=== PATIENT | female | born 2000 | race Two or more races ===

== ENCOUNTER 2021-08-06 19:20 | Emergency (ER) | payer OTHER ==
[~2021-08-06] VITALS: Ht 165.1 cm; Wt 49.9 kg
== END 2021-08-06 22:58 | disposition home or self-care (01) ==
LOC: ER 19:20 → EMR PED 19:25
DX: R07.9 Chest pain, unspecified (principal); R42 Dizziness and giddiness; Z20.822 Contact with and (suspected) exposure to COVID-19

== ENCOUNTER 2021-08-18 07:42 | Outpatient (CLI) | payer OTHER | END 2021-08-18 07:43 | disposition home or self-care (01) | LOC: LAB 07:42 | PROVIDERS: ATTEND Internal Medicine | DX: N91.2 Amenorrhea, unspecified (principal); R73.09 Other abnormal glucose; E55.9 Vitamin D deficiency, unspecified; Z13.1 Encounter for screening for diabetes mellitus ==

== ENCOUNTER 2021-09-01 08:03 | Outpatient (CLI) | payer OTHER | END 2021-09-01 08:04 | disposition home or self-care (01) | LOC: LAB 08:03 | PROVIDERS: ATTEND Internal Medicine | DX: E11.65 Type 2 diabetes mellitus with hyperglycemia (principal) ==

== ENCOUNTER → 2021-09-20 06:23 | Outpatient (CLI) | payer OTHER | END | disposition home or self-care (01) | LOC: LAB 06:23 | PROVIDERS: ATTEND Internal Medicine | DX: N92.6 Irregular menstruation, unspecified (principal); E27.1 Primary adrenocortical insufficiency; E16.2 Hypoglycemia, unspecified; E28.2 Polycystic ovarian syndrome ==

== ENCOUNTER 2022-01-21 07:19 | Outpatient (CLI) | payer OTHER | END 2022-01-21 07:21 | disposition home or self-care (01) | LOC: LAB 07:19 | PROVIDERS: ATTEND Obstetrics & Gynecology | DX: N95.1 Menopausal and female climacteric states (principal); E22.0 Acromegaly and pituitary gigantism; E55.0 Rickets, active ==

== ENCOUNTER 2022-01-21 08:41 | Outpatient (CLI) | payer OTHER | END 2022-01-21 08:46 | disposition home or self-care (01) | LOC: SONOGRAMA 08:41 | PROVIDERS: ATTEND Obstetrics & Gynecology | DX: R10.2 Pelvic and perineal pain (principal) ==

== ENCOUNTER → 2024-03-13 06:31 | Outpatient (CLI) | payer OTHER ==
[2024-03-13 09:03] LABS: ALBUMIN 3.9 gm/dL (3.4-5.0); BILIRUBIN TOTAL 0.56 mg/dL (0.3-1.2); CALCIUM 8.8 mg/dL (8.5-10.1); CREATININE SERUM 0.44 mg/dL (0.55-1.02); GFR 177.2; GLOBULINA 3.4 G/DL (2.4-3.5); POTASSIUM 3.92 mEq/L (3.5-5.1); TOTAL PROTEIN 7.3 gm/dL (6.4-8.2); TSH 2.8 uIU/mL (0.358-3.74)
== END | disposition home or self-care (01) ==
LOC: LAB 06:31
DX: E16.1 Other hypoglycemia (principal); E66.3 Overweight; Z13.1 Encounter for screening for diabetes mellitus

== ENCOUNTER 2024-08-19 07:12 | Outpatient (CLI) | payer OTHER ==
[2024-08-19 08:10] LABS: PH,URINE 7.5 (5.0-8.0); URINE APPEARANCE Cloudy; URINE BILIRRUBIN Negative (NEGATIVE); URINE BLOOD Large; URINE COLOR Orange; URINE GLUCOSE Negative (NEGATIVE); URINE KETONE Negative (NEGATIVE); URINE LEUKOCYTE Small; URINE NITRATE Negative; URINE PROTEIN Trace (NEGATIVE)
[2024-08-19 08:13] LABS: URINE BACTERIA 79.5 uL (0.0-1933); URINE EPITHELIAL CELLS 13.2 uL (0.0-38.8); URINE RBC 6852.6 uL (0.0-20.8); URINE WBC 48.7 uL (0.0-23.2)
[2024-08-19 08:14] LABS: BASO % 0.4 % (0.1-1.2); EOS # 0.09 (0.04-0.54); EOS % 1.8 % (0.7-7.0); LYMPH # 1.59 (1.18-3.74); LYMPH % 31.1 % (19.3-53.1); MEAN CORPUSCULAR HEMOGLOBIN 28.7 pg (25.6-32.2); MONO % 7.8 % (4.7-12.5); NEUT # 3.01 (1.56-6.13); NEUT % 58.7 % (34.0-71.1); PLATELET COUNT 294 K/uL (163-369); RED BLOOD COUNT 4.53 M/uL (3.93-5.22); RED CELL DISTRIBUTION WIDTH 12.4 % (11.6-14.4)
[2024-08-19 08:25] LABS: URINE CAST 0.29 uL (0.0-1.40)
[2024-08-19 09:46] LABS: ALBUMIN 3.9 gm/dL (3.4-5.0); BILIRUBIN TOTAL 0.56 mg/dL (0.3-1.2); CALCIUM 8.8 mg/dL (8.5-10.1); CHOL HDL RATIO 2.9 (0-5.0); CREATININE SERUM 0.47 mg/dL (0.55-1.02); FERRITIN 39.2 NG/ML (8-252); GFR 164.21; GLOBULINA 3.2 G/DL (2.4-3.5); POTASSIUM 4.06 mEq/L (3.5-5.1); T4 FREE 0.9 NG/ML (0.76-1.46); TOTAL PROTEIN 7.1 gm/dL (6.4-8.2); TSH 1.52 uIU/mL (0.358-3.74)
[2024-08-19 11:03] LABS: VITAMIN D3 25 HYDROXY 26.3 ng/ml (30-120)
== END 2024-08-19 07:18 | disposition home or self-care (01) ==
LOC: LAB 07:12
PROVIDERS: ATTEND Internal Medicine
DX: R10.13 Epigastric pain (principal); E78.2 Mixed hyperlipidemia; D50.0 Iron deficiency anemia secondary to blood loss (chronic); D51.8 Other vitamin B12 deficiency anemias; K76.0 Fatty (change of) liver, not elsewhere classified; Z13.1 Encounter for screening for diabetes mellitus; R97.8 Other abnormal tumor markers; E55.9 Vitamin D deficiency, unspecified

== ENCOUNTER 2024-08-19 07:48 | Outpatient (CLI) | payer OTHER | END 2024-08-19 07:54 | disposition home or self-care (01) | LOC: SONOGRAMA 07:48 | PROVIDERS: ATTEND Internal Medicine | DX: R10.13 Epigastric pain (principal); K44.9 Diaphragmatic hernia without obstruction or gangrene; K26.0 Acute duodenal ulcer with hemorrhage ==